=== PATIENT | male | born 1930 | race Caucasian/White ===

== ENCOUNTER 2017-06-29 07:36 | Day surgery (SDC) | payer MEDICARE, MEDICAID ==
[~2017-06-29] VITALS: Ht 177.8 cm; Wt 47.2 kg
[2017-06-29 13:34] VITALS: BP 135/71
--- NOTE | 2017-07-03 15:43 | Operative Note ---
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 The perilesional area was infiltrated with 10 mL of 2 percent lidocaine with epi after the ear had been thoroughly prepped and draped. A composite resection of the upper third of the ear was done commencing anteriorly the skin of the anterior part of the ear was incised. And then the cartilage subjacent to it was incised followed by incision of the posterior skin. The upper half of the left ear was removed and submitted for frozen section analysis. 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 Bleeding was stopped with bipolar cautery blood loss was less than 15 mL. Flaps were elevated and a multiple Z- plasty repair was done over the superior aspect of the defect. A complete closure of the skin was obtained. And there was no evidence of any extruding cartilage. A Dermabond dressing followed by an occlusive dressing was applied. The patient tolerated procedure well and was sent to recovery in good general condition. EBL (ml): 12 Specimens obtained: Same as above at 3789
== END 2017-06-29 11:54 | disposition home or self-care (01) ==
LOC: SDC 07:36
PROVIDERS: Otolaryngology
PROC: 0HB3XZX Excision of Left Ear Skin, External Approach, Diagnostic (ICD-10-PCS; principal; 2017-06-29 09:45)
DX: C44.229 Squamous cell carcinoma of skin of left ear and external auricular canal (principal); E11.9 Type 2 diabetes mellitus without complications

== ENCOUNTER → 2017-08-28 | Outpatient (CLI) | payer MEDICARE, MEDICAID ==
--- NOTE | 2017-08-28 14:59 | RADIOLOGY REPORT PS360 ---
RIBS-BILATERAL, CHEST(2 VIEWS-NOT PORTABLE) Ordering Physician: Eufemia Sampson APRN Patient Age: 87 years: Male HISTORY: RIB AND CHEST PAIN rib and chest pain. COPD TECHNIQUE: 1. Right RIBS: Both obliques above and below diaphragm AP 2. CXR 2 view-PA and lateral chest COMPARISON :08/16/2016 CXR 2 view =-===== RIGHT RIBS Acute fracture posterior ninth rib most evident, along with suspect subtle nondisplaced fracture posterior eighth rib & likely seventh rib and question T6 were. Incidental note endplate compression T12 vertebral, L2 & vertebral. Age-indeterminate diffuse osteoporosis.. No pneumothorax. ======== PA AND LATERAL CHEST. 2 view Prominent COPD with hyperexpansion. The diaphragm. Chronic changes. Heart luigi and mediastinal structures satisfactory. No pneumothorax. No pleural effusion The patient had a subtle mild to moderate superior endplate compression at T 12 on previous August 2016. There is severe wedge compression fracture at T6 which is similar to previous study. Diffuse osteoporosis apical pleural scarring right greater than left again noted and similar to previous study.. Suspect mild compression at L2 is likely present before as well IMPRESSION: 1. Acute posterior right ninth rib fracture most evident, with likely subtle fracture also at right posterior rib 8, 7 and possibly 6th 2. No associated pneumothorax. . 3. Advanced COPD hyperexpansion & emphysematous changes-stable since previous studies 4. Old appearing compression fractures T-spine . ( Severe wedge compression fracture T6 mild and mild compression fracture T12 vertebra) 5. Diffuse osteoporosis, mineralization.
== END ==
LOC: RAD 12:25
DX: R07.89 Other chest pain (principal)